=== PATIENT | female | born 1975 | race Caucasian/White ===

== ENCOUNTER → 2017-07-05 | Outpatient (CLI) | payer SELFPAY ==
--- NOTE | 2017-07-05 11:14 | RADIOLOGY IMAGING REPORT ---
[place]AC[place] [facility] [place] NAME: Pam Best : 1975 MR: [id number] V: [id number] EXAM DATE: ORDERING PHYSICIAN: LILY HERNANDEZ TECHNOLOGIST: Location: [facility] - [place] Patient: Pam Best : 1975 Visit/Account:[id number] Date of Sevice: 07/05/2017 Exam type: CHEST PA AND LAT History: Cough and back pain since 219/, positive for fluid Comparison: None. Findings: The lungs are free of acute effusions, infiltrates or edema. Cardiac silhouette is normal in size. The trachea is in midline. There is moderate gaseous distention of the bowel in the left upper quadr ant of abdomen IMPRESSION: 1. No acute cardiopulmonary process is seen Incidentally noted is moderate gaseous distention of the bowel left upper quadrant of abdomen Report Dictated By: Arabella Kunz MD at 07/05/2017 11:09 AM Report E-Signed By: Arabella Kunz MD at 07/05/2017 11:10 AM WSN:[email or web address]
== END ==
LOC: RAD 10:33
PROVIDERS: ATTEND Obstetrics & Gynecology
DX: R14.0 Abdominal distension (gaseous) (principal)
CPT/HCPCS: 71046